=== PATIENT | male | born 1955 | race Caucasian/White ===

== ENCOUNTER 2019-10-19 07:17 | Observation (INO) | payer BC ==
[2019-10-19] VITALS (9 sets, daily range): BP systolic 139–180; BP diastolic 57–92
[~2019-10-19] VITALS: Ht 182.9 cm; Wt 94.9 kg
[2019-10-19 08:15] LABS: BASO % 0.9 % (0.0-1.0); EOS # 0.1 10*3/uL (0.0-0.4); EOS % 1.8 % (1.0-4.0); LYMPH # 1.4 10*3/uL (1.3-4.4); LYMPH % 30.4 % (27.0-41.0); MEAN CELL VOLUME 91.5 fl (80.0-94.0); MEAN CORPUSCULAR HGB 30.1 pg (27.0-31.0); MEAN PLATELET VOLUME 8.9 fl (9.6-12.3); MONO # 0.4 10*3/uL (0.1-1.0); MONO % 8.1 % (3.0-9.0); NEUT # 2.7 10*3/uL (2.3-7.9); NEUT % 58.6 % (47.0-73.0); PLATELET COUNT AUTOMATED 176 10*3/uL (130-400); RED BLOOD COUNT 4.81 10*6/uL (4.50-5.90); WHITE BLOOD COUNT 4.6 10*3/uL (4.8-10.8)
[2019-10-19 08:25] LABS: ACT PARTIAL THROMBO TIME 26.4 SECONDS (20.0-32.1); INTERNATIONAL NORM RATIO 1.1 (2.0-3.5)
[2019-10-19 08:32] LABS: ALBUMIN 3.8 gm/dl (3.1-4.5); ALKALINE PHOSPHATASE 69 U/L (45-117); BUN 22 mg/dl (7-24); CHLORIDE 106 mmol/L (98-107); CREATININE 1.14 mg/dL (0.70-1.30); LIPASE 186 U/L (73-393); POTASSIUM 3.8 mmol/L (3.5-5.1); SGOT/AST 23 IU/L (3-35); SGPT/ALT 44 U/L (12-78); SODIUM 139 mmol/L (136-145); TOTAL PROTEIN 7.4 gm/dL (6.4-8.2)
[2019-10-19 08:35] LABS: TROPONIN I < 0.015 ng/ml (<0.045)
[2019-10-19] MEDS ORDERED: PANTOPRAZOLE SO40 MG PO (10:48)
[2019-10-19] MEDS ORDERED: Lopressor25 MG PO (10:50)
[2019-10-19] MEDS ORDERED: ATORVASTATIN CA20 M1 PO (10:51)
== END 2019-10-19 18:48 | disposition home or self-care (01) ==
LOC: ED 07:17 → EDHOLD 09:54 → 4E 10:09
PROVIDERS: Emergency Medicine; ADMIT Student in an Organized Health Care Education/Training Program
DX: M79.602 Pain in left arm (principal); E83.41 Hypermagnesemia; E44.1 Mild protein-calorie malnutrition; E78.5 Hyperlipidemia, unspecified; I49.3 Ventricular premature depolarization; K21.9 Gastro-esophageal reflux disease without esophagitis; E66.3 Overweight